=== PATIENT | male | born 1995 | race Caucasian/White ===

== ENCOUNTER 2020-01-14 01:41 | Emergency (ER) | payer BC ==
[~2020-01-14] VITALS: Ht 157.5 cm; Wt 50.8 kg
[2020-01-14 01:45] VITALS: BP_SYST 120
--- NOTE | 2020-01-14 01:45 | NUR ---
Patient to ER bed 3 to gown for evaluation. Side rails up. Report given to CHARIS.
--- NOTE | 2020-01-14 01:50 | NUR ---
PT AAO AND WAS BIB AMBULANCE FOR ACUTE ALLERGIC REACTION. PT REPORTED SUDDEN ONSET OF SYMPTOMS AFTER EATING SOMETHING SO PT SELF ADMINISTERED EPI PEN. PT HAS HISTORY OF ASTHMA AND IS CURRENTLY IN NO DISTRESS. V/S STABLE.
[2020-01-14 02:00] VITALS: BP_SYST 120
--- NOTE | 2020-01-14 02:00 | NUR ---
ER Dr. ELLER at bedside examining patient.
--- NOTE | 2020-01-14 02:11 | NUR ---
Patient given written and verbal discharge instructions and verbalizes understanding. ER MD discussed with patient the results and treatment provided. Patient in stable condition. ID arm band removed. Rx of prednisone, epipen given. Patient educated on pain management and to follow up with PMD. Opportunity for questions provided and answered. Medication side effect fact sheet provided.
--- NOTE | 2020-01-14 02:16 | NUR ---
Note ignacio in EDM - 01/14/20 at 0224 by [email or web address] Patient given written and verbal discharge instructions and verbalizes understanding. ER discussed with patient the results and treatment provided. Patient in stable condition. ID arm band removed. Rx of motrin given. Patient educated on pain management and to follow up with PMD. Opportunity for questions provided and answered. Medication side effect fact sheet provided.
== END 2020-01-14 02:11 | disposition home or self-care (01) ==
LOC: SED 01:41
DX: T78.2XXA Anaphylactic shock, unspecified, initial encounter (principal); Z91.018 Allergy to other foods; Z91.011 Allergy to milk products; X58.XXXA Exposure to other specified factors, initial encounter
CPT/HCPCS: 99283